=== PATIENT | male | born 1980 | race Caucasian/White ===

== ENCOUNTER → 2024-07-30 11:33 | Outpatient (REF) | payer OTHER, SELFPAY | LOC: RAD 11:33 | PROVIDERS: ATTENDING PHYSICIAN Hospitalist | DX: R68.89 Other general symptoms and signs (principal) | CPT/HCPCS: 71046 ==

== ENCOUNTER → 2025-01-12 09:43 | Outpatient (REF) | payer OTHER, SELFPAY | LOC: HWRAD 09:43 | PROVIDERS: ATTENDING PHYSICIAN Urology; FAMILY PHYSICIAN Internal Medicine | DX: N30.10 Interstitial cystitis (chronic) without hematuria (principal) | CPT/HCPCS: 76770 ==